=== PATIENT | female | born 1960 | race Two or more races ===

== ENCOUNTER → 2020-02-20 | Outpatient (CLI) | payer BC ==
[2020-02-20 11:56] LABS: Basophils # (auto) 0 10 ^3/uL (0-0.2); Basophils % (auto) 1.1 % (0.0-2.0); Eosinophils # (auto) 0.1 10 ^3/uL (0-0.8); Eosinophils % (auto) 1.8 % (0.0-7.0); Hematocrit 42.3 % (36.0-46.0); Hemoglobin 13.9 g/dL (12.2-16.2); Lymphocytes # (auto) 1.1 10 ^3/uL (0.4-5.4); Lymphocytes % (auto) 24.6 % (10.0-50.0); Mean Corpuscular Hemoglobin 27.2 pg (28.0-32.0); Mean Corpuscular Hgb Conc. 32.9 g/dL (32.0-36.0); Mean Corpuscular Volume 82.6 fL (80.0-100.0); Monocytes # (auto) 0.3 10 ^3/uL (0-1.3); Monocytes % (auto) 7.6 % (0.0-12.0); Neutrophils # (auto) 2.9 10 ^3/uL (1.6-8.6); Neutrophils % (auto) 64.9 % (37.0-80.0); Nucleated Red Blood Cells % 0.7 %; Platelet Count (auto) 173 10^3/uL (140-450); Red Blood Cells 5.12 10^6/uL (4.0-5.20); Red Cell Distribution Width 13.5 % (11.8-14.3); White Blood Cell 4.5 10^3/uL (4.4-10.8)
[2020-02-20 11:58] LABS: Urine Bacteria NONE SEEN /hpf (None Seen); Urine Blood Negative /uL (Negative); Urine Mucus FEW (None Seen); Urine Specific Gravity 1.033 (1.001-1.035); Urine WBC 11 /hpf (0 - 5)
[2020-02-20 12:31] LABS: Albumin 3.7 g/dL (3.4-5.0); Calcium 8.8 mg/dL (8.5-10.1); Potassium 3.6 mmol/L (3.5-5.1)
[2020-02-20 12:34] LABS: BUN/Creatinine Ratio 14.5; Bilirubin, Total 0.9 mg/dL (0.2-1.0); Total Protein 7.5 g/dL (6.4-8.2)
== END | disposition home or self-care (01) ==
LOC: LAB 11:38
PROVIDERS: ATTEND Physician Assistant
DX: Z00.00 Encounter for general adult medical examination without abnormal findings (principal); E11.9 Type 2 diabetes mellitus without complications; I10 Essential (primary) hypertension; M54.32 Sciatica, left side
CPT/HCPCS: 36415; 80053; 80061; 81001; 83036; 85025

== ENCOUNTER 2023-02-25 19:12 | Emergency (ER) | payer SELFPAY ==
[~2023-02-25] VITALS: Ht 144.8 cm; Wt 77.2 kg
[2023-02-25] MEDS ORDERED: HYDROcodone-ACET 10/325MG TAB PO ONE (20:15)
[2023-02-25] MEDS ORDERED: KETOROLAC TROMETH 60MG/2ML VIAL IM ONE (20:15)
[2023-02-25 20:58] LABS: Urine Bacteria NONE SEEN /hpf (None Seen); Urine Blood Negative /uL (Negative); Urine Clarity Clear (Clear); Urine Color Colorless (Yellow); Urine Protein, UAD 1+ (Negative); Urine Urobilinogen Normal (Negative); Urine WBC 12 /hpf (0 - 5)
[2023-02-25] MEDS ORDERED: HYDR-4902 PO (21:19)
[2023-02-25] MEDS ORDERED: IBUP1TAB5 PO (21:19)
[2023-02-25] MEDS ORDERED: NITR-87 PO (21:19)
[2023-02-25 21:45] VITALS: BP 170/83; PULSE 86; RESP 18; TEMP 99; O2SAT 96
== END 2023-02-25 21:48 | disposition home or self-care (01) ==
LOC: ER 19:21
DX: N39.0 Urinary tract infection, site not specified (principal); M41.9 Scoliosis, unspecified; X50.1XXA Overexertion from prolonged static or awkward postures, initial encounter; Y93.89 Activity, other specified; Y92.89 Other specified places as the place of occurrence of the external cause; Y99.8 Other external cause status
CPT/HCPCS: 72100; 81001; 96372; 99284; J1885

== ENCOUNTER 2023-05-15 12:01 | Emergency (ER) | payer BC, MEDICAID ==
[~2023-05-15] VITALS: Ht 144.8 cm; Wt 75.0 kg
[~2023-05-15 12:01] MED LIST: HYDR-4902 PO; IBUP1TAB5 PO; NITR-87 PO
[2023-05-15 12:19] VITALS: BP 134/67; PULSE 76; RESP 16; O2SAT 98
[2023-05-15 12:56] LABS: Basophils # (auto) 0.1 10 ^3/uL (0-0.2); Basophils % (auto) 0.8 % (0.0-2.0); Eosinophils # (auto) 0.2 10 ^3/uL (0-0.8); Eosinophils % (auto) 3.6 % (0.0-7.0); Hematocrit 38.4 % (36.0-46.0); Hemoglobin 12.8 g/dL (12.2-16.2); Lymphocytes % (auto) 16.2 % (10.0-50.0); Mean Corpuscular Hemoglobin 27.5 pg (28.0-32.0); Mean Corpuscular Hgb Conc. 33.3 g/dL (32.0-36.0); Mean Corpuscular Volume 82.5 fL (80.0-100.0); Monocytes # (auto) 0.3 10 ^3/uL (0-1.3); Monocytes % (auto) 4.8 % (0.0-12.0); Neutrophils # (auto) 4.6 10 ^3/uL (1.6-8.6); Neutrophils % (auto) 74.6 % (37.0-80.0); Nucleated Red Blood Cells % 0.1 %; Red Blood Cells 4.65 10^6/uL (4.0-5.20); Red Cell Distribution Width 13.7 % (11.8-14.3); White Blood Cell 6.2 10^3/uL (4.4-10.8)
[2023-05-15 13:13] LABS: Alanine Aminotransferase 18 U/L (7-40); Albumin 4.4 g/dL (3.2-4.8); Alkaline Phosphatase 153 U/L (46-116); Anion Gap 6 (5-15); Aspartate Aminotransferase 12 U/L (13-40); Blood Urea Nitrogen 19 mg/dL (9-23); Calcium 9.5 mg/dL (8.7-10.4); Carbon Dioxide 28 mmol/L (20-30); Chloride 102 mmol/L (98-107); Glucose 340 mg/dL (74-106); Magnesium 1.8 mg/dL (1.6-2.6); Potassium 4.7 mmol/L (3.5-5.1); Sodium 136 mmol/L (136-145)
[2023-05-15 13:14] LABS: Bilirubin, Total 0.6 mg/dL (0.2-1.0); Total Protein 7.1 g/dL (5.7-8.2)
[2023-05-15] MEDS ORDERED: InsuLIN REG 1unit/0.01ml Soln (100units/ml) IV ONE (13:30)
== END 2023-05-15 18:17 | disposition left against medical advice (07) ==
LOC: ER 12:01
DX: E11.65 Type 2 diabetes mellitus with hyperglycemia (principal); I10 Essential (primary) hypertension; Z88.2 Allergy status to sulfonamides; Z79.1 Long term (current) use of non-steroidal anti-inflammatories (NSAID); Z79.899 Other long term (current) drug therapy
CPT/HCPCS: 36415; 71045; 80053; 82010; 83735; 83880; 84484; 85025

== ENCOUNTER 2024-05-12 19:33 | Inpatient (IN) | payer MEDICAID ==
[~2024-05-12] VITALS: Ht 144.8 cm; Wt 79.8 kg
[2024-05-12 20:56] LABS: Basophils # (auto) 0.1 10 ^3/uL (0-0.2); Basophils % (auto) 1.2 % (0.0-2.0); Eosinophils # (auto) 0.6 10 ^3/uL (0-0.8); Eosinophils % (auto) 8.6 % (0.0-7.0); Hematocrit 40.5 % (36.0-46.0); Hemoglobin 13.6 g/dL (12.2-16.2); Lymphocytes # (auto) 1.2 10 ^3/uL (0.4-5.4); Mean Corpuscular Hgb Conc. 33.7 g/dL (32.0-36.0); Mean Corpuscular Volume 82.9 fL (80.0-100.0); Monocytes # (auto) 0.4 10 ^3/uL (0-1.3); Monocytes % (auto) 5.6 % (0.0-12.0); Neutrophils # (auto) 4.6 10 ^3/uL (1.6-8.6); Neutrophils % (auto) 66.6 % (37.0-80.0); Nucleated Red Blood Cells % 0.1 %; Platelet Count (auto) 229 10^3/uL (140-450); Red Blood Cells 4.88 10^6/uL (4.0-5.20); Red Cell Distribution Width 14.2 % (11.8-14.3); White Blood Cell 6.8 10^3/uL (4.4-10.8)
[2024-05-12 21:09] LABS: Chloride 105 mmol/L (98-107); Potassium 3.7 mmol/L (3.5-5.1); Sodium 139 mmol/L (136-145)
[2024-05-12 21:10] LABS: Anion Gap 7 (5-15); Carbon Dioxide 27 mmol/L (20-31)
[2024-05-12 21:15] LABS: BUN/Creatinine Ratio 14.3 (10.0-20.0); Blood Urea Nitrogen 16 mg/dL (9-23); Glucose 272 mg/dL (74-106); Magnesium 2.1 mg/dL (1.6-2.6)
[2024-05-12 21:36] LABS: Urine Bacteria None Seen /hpf (None Seen)
[2024-05-12 21:47] LABS: Urine Blood TRACE /uL (Negative); Urine Clarity Clear (Clear); Urine Color Light-Yellow (Yellow); Urine Mucus FEW (None Seen); Urine Protein, UAD 1+ (Negative); Urine Specific Gravity 1.035 (1.001-1.035); Urine Urobilinogen Normal (Negative); Urine WBC 3 /hpf (0 - 5); Urine pH 5.5 (5.0-9.0)
[2024-05-12 22:00] VITALS: PULSE 95; RESP 14; O2SAT 96
[2024-05-12] MEDS: SODIUM CHLOR 0.9% PF (SALINE LOCK) 10ML VIAL/SYR IV SCH (22:00)
[2024-05-12] MEDS ORDERED: ONDANSETRON HCL 4 MG/2 ML VIAL IV PRN (22:00)
[2024-05-12] MEDS ORDERED: ACETAMINOPHEN 325 MG TAB PO PRN (22:00)
[2024-05-12] MEDS ORDERED: MORPHINE SULFATE INJ 2 MG/ml SYRG IV PRN (22:00)
[2024-05-12] MEDS ORDERED: NITROGLYCERIN 0.4 MG SL TAB SL PRN (22:00)
[2024-05-12] MEDS: ENOXAPARIN SOD 40 MG/0.4 ML SYRINGE SC ONE (22:00)
[2024-05-13] VITALS (10 sets, daily range): BP systolic 137–162; BP diastolic 66–83; PULSE 70–81; RESP 16–21; TEMP 97.8–98.3; O2SAT 95–100
[2024-05-13] MEDS ORDERED: DEXTROSE (50%) 50ML SYRG IV PRN (00:15)
[2024-05-13] MEDS: ATORVASTATIN 20 MG TAB PO ONE (00:44)
[2024-05-13] MEDS: ASPirin 81 mg TAB PO ONE (00:45)
[2024-05-13] MEDS: ACCU-CHEK COMFORT CURVE STRIP VI SCH (06:40)
[2024-05-13] MEDS: InsuLIN REG 1unit/0.01ml Soln (100units/ml) SC SCH (06:44)
[2024-05-13] MEDS: ASPirin 81 mg TAB PO SCH (09:47)
[2024-05-13 10:07] LABS: Alanine Aminotransferase 15 U/L (7-40); Albumin 4.2 g/dL (3.2-4.8); Alkaline Phosphatase 104 U/L (46-116); Anion Gap 6 (5-15); Aspartate Aminotransferase 14 U/L (13-40); BUN/Creatinine Ratio 15.2 (10.0-20.0); Blood Urea Nitrogen 16 mg/dL (9-23); Calcium 9.8 mg/dL (8.7-10.4); Carbon Dioxide 28 mmol/L (20-31); Chloride 109 mmol/L (98-107); Glucose 163 mg/dL (74-106); Potassium 3.8 mmol/L (3.5-5.1); Sodium 143 mmol/L (136-145)
[2024-05-13 10:08] LABS: Basophils # (auto) 0 10 ^3/uL (0-0.2); Basophils % (auto) 0.7 % (0.0-2.0); Bilirubin, Total 0.4 mg/dL (0.2-1.0); Eosinophils # (auto) 0.5 10 ^3/uL (0-0.8); Eosinophils % (auto) 7.2 % (0.0-7.0); Hematocrit 38.1 % (36.0-46.0); Hemoglobin 12.8 g/dL (12.2-16.2); Lymphocytes # (auto) 1.2 10 ^3/uL (0.4-5.4); Lymphocytes % (auto) 19.1 % (10.0-50.0); Mean Corpuscular Hgb Conc. 33.6 g/dL (32.0-36.0); Mean Corpuscular Volume 83.6 fL (80.0-100.0); Monocytes # (auto) 0.4 10 ^3/uL (0-1.3); Monocytes % (auto) 5.9 % (0.0-12.0); Neutrophils # (auto) 4.4 10 ^3/uL (1.6-8.6); Neutrophils % (auto) 67.1 % (37.0-80.0); Nucleated Red Blood Cells % 0.1 %; Platelet Count (auto) 213 10^3/uL (140-450); Red Blood Cells 4.56 10^6/uL (4.0-5.20); Red Cell Distribution Width 14.1 % (11.8-14.3); Total Protein 6.9 g/dL (5.7-8.2); White Blood Cell 6.5 10^3/uL (4.4-10.8)
[2024-05-13 10:25] LABS: INR 1.08 (0.9-1.15); Partial Thromboplastin Time 28.2 SEC (24.5-34.5); Prothrombin Time 11.4 sec (9.3-11.8)
[2024-05-13] MEDS: POTASSIUM EFFERVESENT TAB 25 MEQ PO ONE (12:30)
[2024-05-13] MEDS: amLODIPine BESYLATE 5 MG TAB PO ONE (12:30)
[2024-05-13] MEDS: ACETAMINOPHEN 500 MG TAB PO PRN (12:37)
[2024-05-13] MEDS ORDERED: OMEP20TA PO (18:15)
[2024-05-13] MEDS ORDERED: CHOL20007 OR (18:15)
[2024-05-13] MEDS ORDERED: GABA-1250 PO (18:15)
[2024-05-13] MEDS ORDERED: CLOP75TA70 PO (18:15)
[2024-05-13] MEDS ORDERED: ATOR20TA50 PO (18:15)
[2024-05-13] MEDS ORDERED: ASPI-543 PO (18:15)
[2024-05-13 20:09] LABS: Urine Bacteria FEW /hpf (None Seen); Urine Blood Negative /uL (Negative); Urine Budding Yeast OCCASIONAL /hpf (None Seen); Urine Clarity Clear (Clear); Urine Color Light-Yellow (Yellow); Urine Mucus FEW (None Seen); Urine Protein, UAD 2+ (Negative); Urine Specific Gravity 1.028 (1.001-1.035); Urine Urobilinogen Normal (Negative); Urine WBC 5 /hpf (0 - 5); Urine pH 5.5 (5.0-9.0)
[2024-05-13 20:34] LABS: Amphetamine Screen, Urine Neg (NEGATIVE); Barbiturate Scree,Urine Neg (NEGATIVE); Benzodiazephine Screen, Urine Neg (NEGATIVE)
[2024-05-13 20:35] LABS: Cocaine Screen, Urine Neg (NEGATIVE); Opiate Scree,Urine Neg (NEGATIVE); Phencyclidine Screen, Urine Neg (NEGATIVE)
[2024-05-13 20:36] LABS: Cannabinoid Screen, Urine Pos (NEGATIVE)
[2024-05-13] MEDS ORDERED: MORPHINE SULFATE INJ 2 MG/ml SYRG IV PRN (22:15)
[2024-05-13] MEDS: ATORVASTATIN 20 MG TAB PO SCH (22:24)
[2024-05-13] MEDS: HYDROcodone-ACET 5/325MG TAB PO PRN (22:24)
[2024-05-13] MEDS: INSULIN LANTUS (GLARGINE) 1 /0.01ml (100units/ml) SC SCH (22:25)
[2024-05-14] VITALS (9 sets, daily range): BP systolic 130–156; BP diastolic 69–82; PULSE 68–85; RESP 17–19; TEMP 97.7–98.7; O2SAT 94–98
[2024-05-14] MEDS ORDERED: hydrALAZINE HCL 20 MG/ML VL IV PRN (01:15)
[2024-05-14] MEDS: PANTOPRAZOLE 40 MG TAB PO SCH (06:05)
[2024-05-14 06:30] LABS: Anion Gap 6 (5-15); Carbon Dioxide 27 mmol/L (20-31); Chloride 106 mmol/L (98-107); Potassium 3.7 mmol/L (3.5-5.1); Sodium 139 mmol/L (136-145)
[2024-05-14 06:31] LABS: Calcium 9.4 mg/dL (8.7-10.4)
[2024-05-14 06:36] LABS: BUN/Creatinine Ratio 17.9 (10.0-20.0); Blood Urea Nitrogen 15 mg/dL (9-23); Glucose 115 mg/dL (74-106)
[2024-05-14] MEDS: amLODIPine BESYLATE 5 MG TAB PO SCH (09:54)
[2024-05-14] MEDS: ENOXAPARIN SOD 40 MG/0.4 ML SYRINGE SC SCH (09:54)
[2024-05-15 00:10] VITALS: BP 156/73; PULSE 77; O2SAT 98
[2024-05-15 05:00] VITALS: BP 144/73; PULSE 78; RESP 18; TEMP 98.2; O2SAT 98
[2024-05-15 07:31] LABS: LDL Cholesterol 62 mg/dL (< 100); Triglycerides 186 mg/dL (< 150)
[2024-05-15 07:32] LABS: HDL Cholesterol 41 mg/dL (40-59)
[2024-05-15 07:33] LABS: Cholesterol 129 mg/dL (< 200)
[2024-05-15 09:00] VITALS: BP 126/74; PULSE 79; RESP 18; TEMP 98.4; O2SAT 97
[2024-05-15] MEDS: POTASSIUM EFFERVESENT TAB 25 MEQ PO ONE (09:00)
[2024-05-15 11:13] LABS: Folate (Folic Acid) 15.82 ng/mL (>5.38)
[2024-05-15 13:00] VITALS: BP 147/83; PULSE 80; RESP 18; TEMP 98; O2SAT 98
[2024-05-15 14:49] VITALS: BP 126/74
[2024-05-15] MEDS ORDERED: ATORVASTATIN 20 MG TAB PO SCH (22:00)
== END 2024-05-15 16:35 | disposition home health service (06) | DRG 861 ==
LOC: ER 19:33 → OVERFLOW 21:57 → WEST WING 22:18
PROVIDERS: ADMIT Internal Medicine; ATTEND Internal Medicine
PROC: 5A09357 Assistance with Respiratory Ventilation, Less than 24 Consecutive Hours, Continuous Positive Airway Pressure (ICD-10-PCS; principal; 2024-05-15)
DX: R53.1 Weakness (principal); I69.354 Hemiplegia and hemiparesis following cerebral infarction affecting left non-dominant side; R27.0 Ataxia, unspecified; E11.9 Type 2 diabetes mellitus without complications; E66.9 Obesity, unspecified; G47.10 Hypersomnia, unspecified; I10 Essential (primary) hypertension; E78.5 Hyperlipidemia, unspecified; F12.10 Cannabis abuse, uncomplicated; Z83.3 Family history of diabetes mellitus; Z82.49 Family history of ischemic heart disease and other diseases of the circulatory system; Z82.3 Family history of stroke; Z80.49 Family history of malignant neoplasm of other genital organs; Z80.3 Family history of malignant neoplasm of breast; Z79.82 Long term (current) use of aspirin; Z79.899 Other long term (current) drug therapy; Z68.37 Body mass index [BMI] 37.0-37.9, adult
CPT/HCPCS: 36415; 70450; 70551; 71045; 73502; 80048; 80053; 80061; 80307; 80320; 81001; 82043; 82306; 82607; 82746; 82962; 83036; 83735; 84443; 84484; 85025; 85610; 85730; 93306; 93886; 93970; 94660; 97163; G0378; J1815

== ENCOUNTER 2025-02-06 13:14 | Inpatient (IN) | payer MEDICAID ==
[~2025-02-06] VITALS: Ht 144.8 cm; Wt 83.9 kg
[~2025-02-06 13:14] MED LIST changes: +ASPI-543 PO; +ATOR20TA50 PO; +CHOL20007 OR; +CLOP75TA70 PO; +GABA-1250 PO; -HYDR-4902 PO; -IBUP1TAB5 PO; -NITR-87 PO; +OMEP20TA PO
--- NOTE | 2025-02-06 13:26 | ED.PDOC ---
History of Present Illness HPI Comments 64-year-old female with PMHx DM, HTN, CVA presents with a chief complaint of chest pain x 2 days with associated SOB. Patient states that her pain is localized to her sternal region, nonradiating, nonexertional, describes as pressure, and rates her pain a 7/10. Patient denies any nausea, vomiting, or diarrhea associated with her chest pain. Patient also endorses some SOB. Patient is not on supplemental oxygen. Time Seen by MD: 13:19 Reviewed Notes: Nurses Notes, Medications, Allergies Allergies: Coded Allergies: Sulfa Antibiotics (Verified Allergy, Unknown, 05/15/23) Home Meds Reported Medications Gabapentin (Gabapentin) 300 Mg Cap, 300 MG PO DAILY for 30 Days, MG 05/13/24 Atorvastatin Calcium (ATORVASTATIN CALCIUM) 20 Mg Tab, 1 TAB PO HS, #30 TAB 5 Refills 05/13/24 Clopidogrel Bisulfate (CLOPIDOGREL) 75 Mg Tab, 75 MG PO DAILY for 30 Days, MG 05/13/24 Omeprazole (Gnp Omeprazole) 20 Mg Tab, 40 MG PO before breakfast, TAB 05/13/24 Cholecalciferol (VITAMIN D3) 2,000 Unit Tab, 34978 UNIT OR once a week, TAB 05/13/24 Aspirin (Aspir-Low) 81 Mg Tab, 81 MG PO DAILY for 30 Days, MG 05/13/24 Information Source: Patient Mode of Arrival: Ambulatory Severity: Moderate Timing: Days Duration: Since onset Prehospital treatment: None Past Medical History PAST MEDICAL HISTORY: CVA, DM, High Lipids, HTN Surgical History: Denies all surgeries ROLLED MATERIALS WORKER History: No Pertinent 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 WORKER History Family History Family History: Reviewed,noncontributory to illness Social History Smoker: Non-Smoker Alcohol: Denies ETOH Use Drugs: Denies Drug Use Lives In: Home Constitutional: denies: chills, diaphoresis, fatigue, fever, malaise, sweats, weakness, others EENTM: denies: blurred vision, double vision, ear bleeding, ear discharge, ear drainage, ear pain, ear ringing, eye pain, eye redness, hearing loss, mouth pain, mouth swelling, nasal discharge, nose bleeding, nose congestion, nose pain, photophobia, tearing, throat pain, throat swelling, voice changes, others Respiratory: reports: shortness of breath; denies: cough, hemoptysis, orthopnea, SOB at rest, SOB with excertion, stridor, wheezing, others Cardiovascular: reports: chest pain; denies: dizzy spells, diaphoresis, Dyspnea on exertion, edema, irregular heart beat, left arm pain, lightheadedness, palpitations, PND, syncope, others Gastrointestinal: denies: abdomen distended, abdominal pain, blood streaked bowels, constipated, diarrhea, dysphagia, difficulty swallowing, hematemesis, melena, nausea, poor appetite, poor fluid intake, rectal bleeding, rectal pain, vomiting, others Genitourinary: denies: abnormal vagina bleeding, burning, dyspareunia, dysuria, flank pain, frequency, hematuria, incontinence, pain, , vagina discharge, urgency, others Neurological: denies: dizziness, fainting, headache, left sided numbness, left sided weakness, numbness, paresthesia, pre-existing deficit, right sided numbness, right sided weakness, seizure, speech problems, tingling, tremors, weakness, others Musculoskeletal: denies: back pain, gout, joint pain, joint swelling, muscle pain, muscle stiffness, neck pain, others Integumetry: denies: bruises, change in color, change in hair/nails, dryness, laceration, lesions, lumps, rash, wounds, others Allergic/Immunocompromised: denies: Difficulty Healing, Frequent Infections, Hives, Itching, others Hematologic/Lymphatic: denies: anemia, blood clots, easy bleeding, easy bruising, swollen glands, others Endocrine: denies: excessive hunger, excessive sweating, excessive thirst, excessive urination, flushing, intolerance to cold, intolerance to heat, unexplained weight gain, unexplained weight loss, others Psychiatric: denies: anxiety, bipolar disorder, depression, hopeless, panic disorder, schizophrenia, sleepless, suicidal, others All Other Systems: Reviewed and Negative Physical Exam General Appearance: Moderate Distress HEENT: Normal ENT Inspection, Pharynx Normal, TMs Normal Neck: Full Range of Motion, Non-Tender, Normal, Normal Inspection Respiratory: Chest Non-Tender, Lungs Clear, No Accessory Muscle Use, No Respiratory Distress, Normal Breath Sounds Cardiovascular: No Edema, No JVD, No Murmur, No Gallop, Normal Peripheral Pu lses, Regular Rate/Rhythm Breast Exam: Deferred Gastrointestinal: No Organomegaly, Non Tender, No Pulsatile Mass, Normal Bowel Sounds, Soft Genitalia: Deferred Pelvic: Deferred Rectal: Deferred Extremities: No calf tenderness, Normal capillary refill, Normal inspection, Normal range of motion, Non-tender, No pedal edema Musculoskeletal : Apperance: Normal Neurologic: Alert, centrex radio operator II-XII nml as Tested, Motor Weakness, Normal Affect, Normal Mood, No Sensory Deficits Cerebellar Function: Normal Reflexes: Normal Skin: Dry, Normal Color, Warm Lymphatic: No Adenopathy Was a procedure done? Was a procedure done?: No EKG EKG : Pulse Rate (adult): 83 [place]: Normal Cardiac Rhythm: NSR Block: None Hypertrophy: None ST: Normal Differential Dx Considerations may include: ACS, [place], pneumonia, pneumothorax X-Ray, Labs, Meds, VS Vital Signs Date Time Temp Pulse Resp B/P (MAP) Pulse Ox O2 Delivery O2 Flow Rate FiO2 02/06/25 14:32 84 02/06/25 14:03 98.7 84 18 170/85 (113) 97 98.7 02/06/25 13:55 84 18 97 Room Air* 0 21 02/06/25 13:26 83 02/06/25 13:22 83 02/06/25 13:18 97.4 85 20 188/89 (122) 98 97.4 Lab Test 02/06/25 14:21 02/06/25 13:24 Range/Units Troponin I High Sensitivity 3 L < 3 L </=34 ng/L White Blood Count 6.9 4.4-10.8 10^3/uL Red Blood Count 4.69 4.0-5.20 10^6/uL Hemoglobin 13.0 12.2-16.2 g/dL Hematocrit 38.1 36.0-46.0 % Mean Corpuscular Volume 81.3 80.0-100.0 fL Mean Corpuscular Hemoglobin 27.6 L 28.0-32.0 pg Mean Corpuscular Hemoglobin Concent 34.0 32.0-36.0 g/dL Red Cell Distribution Width 13.5 11.8-14.3 % Platelet Count 196 140-450 10^3/uL Mean Platelet Volume 8.9 6.9-10.8 fL Neutrophils (%) (Auto) 70.0 37.0-80.0 % Lymphocytes (%) (Auto) 18.5 10.0-50.0 % Monocytes (%) (Auto) 5.8 0.0-12.0 % Eosinophils (%) (Auto) 4.9 0.0-7.0 % Basophils (%) (Auto) 0.8 0.0-2.0 % Neutrophils # (Auto) 4.8 1.6-8.6 10 ^3/uL Lymphocytes # (Auto) 1.3 0.4-5.4 10 ^3/uL Monocytes # (Auto) 0.4 0-1.3 10 ^3/uL Eosinophils # (Auto) 0.3 0-0.8 10 ^3/uL Basophils # (Auto) 0.1 0-0.2 10 ^3/uL Nucleated Red Blood Cells 0.1 % Sodium Level 142 136-145 mmol/L Potassium Level 4.2 3.5-5.1 mmol/L Chloride Level 107 98-107 mmol/L Carbon Dioxide Level 25 20-31 mmol/L Anion Gap 10 5-15 Blood Urea Nitrogen 16 9-23 mg/dL Creatinine 0.99 0.550-1.02 mg/dL Glomerular Filtration Rate Calc 64 >90 mL/min BUN/Creatinine Ratio 16.2 10.0-20.0 Serum Glucose 234 H 74-106 mg/dL Calcium Level 9.4 8.7-10.4 mg/dL Current Medications Medications (Trade) Dose Ordered Sig/Reynaldo Route Start Time Stop Time Status Last Admin Aspirin 162 mg ONCE ONCE PO 02/06/25 13:30 02/06/25 13:31 DC 02/06/25 13:58 IV Hep-Lock was established The patient was given aspirin 162 mg by mouth. The patient is still having some persistent chest pain The patient's chemistry panel is within normal limits The CBC is within normal limits The patient had a troponin level which is negative We repeated the troponin level is also negative The patient is being admitted at this time The patient's diagnosis is acute coronary syndrome Images Reviewed?: Images reviewed and evaluated by me Time of 1ST Reevaluation: 13:49 Reevaluation 1ST: Improved Patient Education/Counseling: Diagnosis, Treatment, Prognosis Family Education/Counseling: No Family Present SEPSIS Sepsis Screen Physician Orders Heplock Iv (02/06/25 13:21) Advertising Job Titles (02/06/25 13:21) Blood Pressure (02/06/25 13:21) Pulse Oximetry (02/06/25 13:21) Chest Two Views Routine (02/06/25 13:21) Urinalysis (02/06/25 13:21) Electrocardigram (02/06/25 14:21) Electrocardigram (02/06/25 16:21) Vital Signs Date Time Temp Pulse Resp B/P (MAP) Pulse Ox O2 Delivery O2 Flow Rate FiO2 02/06/25 14:32 84 02/06/25 14:03 98.7 84 18 170/85 (113) 97 98.7 02/06/25 13:55 84 18 97 Room Air* 0 21 02/06/25 13:26 83 02/06/25 13:22 83 02/06/25 13:18 97.4 85 20 188/89 (122) 98 97.4 Laboratory Tests Test 02/06/25 13:24 White Blood Count 6.9 10^3/uL (4.4-10.8) Medications Medications Dose Ordered Sig/Reynaldo Route Start Time Stop Time Status Last Admin Dose Admin Aspirin 162 mg ONCE ONCE PO 02/06/25 13:30 02/06/25 13:31 DC 02/06/25 13:58 Departure 1 Departure Time of Disposition: 16:12 Impression: Primary Impression: Acute coronary syndrome Disposition: 09 ADMITTED INPATIENT Admit to: Tele Condition: Fair Critical Care Note Critical Care Time?: Yes (45 min-critical care time only) Stability Stability form required: Yes Unstable for transfer: Telemetry monitoring (Telemetry monitoring required), ED Physician Assesment Heart Score Heart Score: Heart Score Response (Comments) Value History Moderate Suspicious 1 EKG Repolarization Disturb 1 Age 45-64 1 Risk Factors >3 or Hx ASHD 2 Troponin Normal limit 0 Total 5 I personally scribed for JUAN IBANEZ MD ([email or web address]) on 02/06/25 at 13:26. Electronically submitted by Wing Green ([email or web address]). JUAN IBANEZ MD Feb 06, 2025 13:26
[2025-02-06 13:50] LABS: Hematocrit 38.1 % (36.0-46.0); Hemoglobin 13.0 g/dL (12.2-16.2); Mean Corpuscular Hemoglobin 27.6 pg (28.0-32.0); Mean Corpuscular Volume 81.3 fL (80.0-100.0); Nucleated Red Blood Cells % 0.1 %
--- NOTE | 2025-02-06 13:50 | DVH ---
EXAM: XY CHEST TWO VIEWS ROUTINE CLINICAL HISTORY: sob COMPARISON: None TECHNIQUE: Frontal and lateral view of the chest was obtained FINDINGS: Lines and Tubes: None Lungs: No focal consolidation. Pleura: No effusion. No pneumothorax. Cardiomediastinal contours: Unremarkable Bones: No acute osseous abnormality. IMPRESSION: No acute cardiopulmonary disease.
[2025-02-06 13:55] VITALS: PULSE 84; RESP 18; O2SAT 97
[2025-02-06 14:02] LABS: Potassium 4.2 mmol/L (3.5-5.1); Sodium 142 mmol/L (136-145)
[2025-02-06 14:03] LABS: Anion Gap 10 (5-15); Calcium 9.4 mg/dL (8.7-10.4); Carbon Dioxide 25 mmol/L (20-31)
[2025-02-06 14:07] LABS: Chloride 107 mmol/L (98-107)
[2025-02-06 14:08] LABS: BUN/Creatinine Ratio 16.2 (10.0-20.0); Blood Urea Nitrogen 16 mg/dL (9-23); Glucose 234 mg/dL (74-106)
--- NOTE | 2025-02-06 14:33 | ECG ---
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
[2025-02-06 16:42] LABS: Urine Budding Yeast FEW /hpf (None Seen); Urine Protein, UAD 1+ (Negative)
[2025-02-06] MEDS ORDERED: DOCUSATE SOD 100 MG CAP PO PRN (17:00)
[2025-02-06] MEDS ORDERED: MORPHINE SULFATE INJ 2 MG/ml SYRG IV PRN (17:00)
[2025-02-06] MEDS ORDERED: NITROGLYCERIN 0.4 MG SL TAB SL PRN (17:00)
[2025-02-06] MEDS ORDERED: ONDANSETRON HCL 4 MG/2 ML VIAL IV PRN (17:00)
[2025-02-06] MEDS ORDERED: DEXTROSE (50%) 50ML SYRG IV PRN (17:00)
[2025-02-06] MEDS ORDERED: ACETAMINOPHEN 325 MG TAB PO PRN (17:00)
[2025-02-06] MEDS ORDERED: EMPA1TAB PO (17:01)
[2025-02-06] MEDS ORDERED: GLIM4TAB42 PO (17:01)
[2025-02-06] MEDS ORDERED: AMLO1TAB22 PO (17:01)
--- NOTE | 2025-02-06 17:15 | DVHHP2 ---
History of Present Illness Reason for Visit: Chest Pain History of Present Illness Flores Babb is a 64-year-old female with past medical history of hypertension, hyperlipemia, diabetes, and CVA, who came to the hospital due to chest pain. Patient states she has been experiencing intermittent chest pain for about 2 days. She states the pain is across her right and left chest, is a pressure type of pain, worsens when she lays flat, and has associated shortness of breath when the pain occurs. 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 Endocrine: Diabetes Past Surgical History: (x 2) Smoke: No ALCOHOL: none Drugs: None Lives: Alone Domestic Violence: Neg Review of Systems Constitutional: No: Fever, Chills, Sweats, Weakness, Malaise, Other Eyes: No: Pain, Vision change, Conjunctivae inflammation, Eyelid inflammation, Other, Redness ENT: No: Ear pain, Ear discharge, Nose pain, Nose discharge, Nose congestion, Mouth pain, Mouth swelling, Throat pain, Throat swelling, Other Respiratory: No: Cough, Dry, Shortness of breath, SOB with excertion, Wheezing, Hemoptysis, Pleuritic Pain, Sputum, Wheezing, Other Cardiovascular: No: Chest Pain, Palpitations, Orthopnea, Paroxysmal Noc. Dyspnea, Edema, Lt Headedness, Other Gastrointestinal: No: Nausea, Vomiting, Abdominal Pain, Diarrhea, Constipation, Melena, Hematochezia, Other Genitourinary: No Dysuria, No Frequency, No Incontinence, No Hematuria, No Retention, No Other Musculoskeletal: No: other, neck pain, shoulder pain, arm pain, back pain, hand pain, leg pain, foot pain Neurological: No: Weakness, Numbness, Incoordination, Change in speech, Confusion, Seizures, Other Allergies: Coded Allergies: Sulfa Antibiotics (Verified Allergy, Unknown, 05/15/23) Medications Current Medications Medications Dose Ordered Sig/Reynaldo Route Start Time Stop Time Status Last Admin Dose Admin Acetaminophen/ Hydrocodone Bitart 1 tab Q4HP PRN PO 02/06/25 17:00 UNV Morphine Sulfate 2 mg Q30M PRN IV 02/06/25 17:00 UNV Diagnostic Test (Pha) 1 strip ACHS 02/06/25 17:00 UNV Exam Vital Signs Vital Signs Date Time Temp Pulse Resp B/P (MAP) Pulse Ox O2 Delivery O2 Flow Rate FiO2 02/06/25 16:21 79 18 166/83 (110) 96 02/06/25 14:03 98.7 98.7 02/06/25 13:55 Room Air* 0 21 General Appearance: Alert, Oriented X3, Cooperative, mild distress HEENT: Atraumatic, PERRLA Respiratory: Clear to auscultation, Normal air movement Cardiovascular: Regular rate, Normal S1, Normal S2, No murmurs Abdominal: Normal bowel sounds, Soft, No tenderness, No hepatospenomegaly Extremities: No clubbing, No cyanosis, No edema, No tenderness/swelling Skin: No rashes, No breakdown Neuro: Normal gait, Normal speech, Strength at 5/5 X4 ext, Normal tone Psych/Mental Status: Mental status NL Labs/Xrays Labs Test 02/06/25 16:31 02/06/25 14:21 02/06/25 13:24 Range/Units Urine Color Light-yellow Yellow Urine Clarity Clear Clear Urine pH 5.5 5.0-9.0 Urine Specific [place] 1.031 1.001-1.035 Urine Protein 1+ H Negative Urine Ketones Negative Negative Urine Blood Trace H Negative /uL Urine Nitrite Negative Negative Urine Bilirubin Negative Negative Urine Urobilinogen Normal Negative mg/dL Urine Leukocyte Esterase Negative Negative /uL Urine RBC 14 0 - 4 /hpf Urine Microscopic WBC 2 0-5 /HPF Urine Squamous Epithelial Cells Few <5 /hpf Urine Bacteria None seen None Seen /hpf Urine Yeast (Budding) Few None Seen /hpf Urine Glucose 4+ H Normal mg/dL Troponin I High Sensitivity 3 L </=34 ng/L White Blood Count 6.9 4.4-10.8 10^3/uL Red Blood Count 4.69 4.0-5.20 10^6/uL Hemoglobin 13.0 12.2-16.2 g/dL Hematocrit 38.1 36.0-46.0 % Mean Corpuscular Volume 81.3 80.0-100.0 fL Mean Corpuscular Hemoglobin 27.6 L 28.0-32.0 pg Mean Corpuscular Hemoglobin Concent 34.0 32.0-36.0 g/dL Red Cell Distribution Width 13.5 11.8-14.3 % Platelet Count 196 140-450 10^3/uL Mean Platelet Volume 8.9 6.9-10.8 fL Neutrophils (%) (Auto) 70.0 37.0-80.0 % Lymphocytes (%) (Auto) 18.5 10.0-50.0 % Monocytes (%) (Auto) 5.8 0.0-12.0 % Eosinophils (%) (Auto) 4.9 0.0-7.0 % Basophils (%) (Auto) 0.8 0.0-2.0 % Neutrophils # (Auto) 4.8 1.6-8.6 10 ^3/uL Lymphocytes # (Auto) 1.3 0.4-5.4 10 ^3/uL Monocytes # (Auto) 0.4 0-1.3 10 ^3/uL Eosinophils # (Auto) 0.3 0-0.8 10 ^3/uL Basophils # (Auto) 0.1 0-0.2 10 ^3/uL Nucleated Red Blood Cells 0.1 % Sodium Level 142 136-145 mmol/L Potassium Level 4.2 3.5-5.1 mmol/L Chloride Level 107 98-107 mmol/L Carbon Dioxide Level 25 20-31 mmol/L Anion Gap 10 5-15 Blood Urea Nitrogen 16 9-23 mg/dL Creatinine 0.99 0.550-1.02 mg/dL Glomerular Filtration Rate Calc 64 >90 mL/min BUN/Creatinine Ratio 16.2 10.0-20.0 Serum Glucose 234 H 74-106 mg/dL Calcium Level 9.4 8.7-10.4 mg/dL EXAM: XY CHEST TWO VIEWS ROUTINE FINDINGS: Lines and Tubes: None Lungs: No focal consolidation. Pleura: No effusion. No pneumothorax. Cardiomediastinal contours: Unremarkable Bones: No acute osseous abnormality. IMPRESSION: No acute cardiopulmonary disease. SEPSIS Sepsis Screen Date sepsis recognized/suspect: Feb 06, 2025 Time Sepsis recognized/suspect: 1354 Recent Procedure: No On Antibiotic Therapy: No Respiratory Rate >20: No Heart Rate >90: No Temp<36 C (96.8 F) or >38.3 C: No SBP <90 or MAP <65 mmHG: No New Acute Mental Status Change: No Is the patient on CPAP, BIPAP,: No Physician Orders Heplock Iv (02/06/25 13:21) Rolled Glass Crosscutter (02/06/25 13:21) Blood Pressure (02/06/25 13:21) Pulse Oximetry (02/06/25 13:21) Chest Two Views Routine (02/06/25 13:21) Electrocardigram (02/06/25 14:21) Electrocardigram (02/06/25 16:21) Admit (02/06/25 16:53) Code Status (02/06/25 16:53) 2 Gm Sodium Diet (02/06/25 Dinner) Hydrocodone-Acet 5/325mg Tab ([place] 5/32 (02/06/25 17:00) Ondansetron Hcl (Zofran) (02/06/25 17:00) Docusate Sodium Capsule (Colace Capsule) (02/06/25 17:00) Complete Blood Count (02/07/25 04:00) Comprehensive Metabolic Panel (02/07/25 04:00) Echo 2d Mode Cardiac Dop (02/06/25 16:53) Condition: Serious (02/06/25 16:53) Acetaminophen Tablet (Tylenol Tablet) (02/06/25 17:00) Nitroglycerin Sublingual (Ntrostat Subli (02/06/25 17:00) Morphine Sulfate Injection (02/06/25 17:00) Stat Ekg For Chest Pain (02/06/25 16:53) Notify Md Of Changes From Base (02/06/25 16:53) Credit And Loan Collections Supervisor For 24 Hours (02/06/25 16:53) Emergency Dysrhythmia Protocol (02/06/25 16:53) Rhythm Strips Once Every Shift (02/06/25 16:53) Oxygen By Nasal Cannula (02/06/25 16:53) Glucose Blood (Accu-Chek Comfort Curve T (02/06/25 17:00) Insulin R (Human) (Insulin R) (02/06/25 22:00) Insulin R (Human) (Insulin R) (02/06/25 17:00) Dextrose 50% Syringe (02/06/25 17:00) Aspirin Enteric Coated Tablet (Ecotrin E (02/07/25 10:00) Atorvastatin (Lipitor) (02/06/25 22:00) Clopidogrel Bisulfate (Plavix) (02/07/25 10:00) (Nf) Cholecalciferol (Vitamin D3) (02/06/25 17:00) Amlodipine Tablet (Norvasc Tablet) (02/07/25 10:00) Empagliflozin (Jardiance) (02/07/25 10:00) (Nf) Glimepiride (02/07/25 07:00) Vital Signs Date Time Temp Pulse Resp B/P (MAP) Pulse Ox O2 Delivery O2 Flow Rate FiO2 02/06/25 16:21 79 18 166/83 (110) 96 02/06/25 14:32 84 02/06/25 14:03 98.7 84 18 170/85 (113) 97 98.7 02/06/25 13:55 84 18 97 Room Air* 0 21 02/06/25 13:26 83 02/06/25 13:22 83 02/06/25 13:18 97.4 85 20 188/89 (122) 98 97.4 Laboratory Tests Test 02/06/25 13:24 White Blood Count 6.9 10^3/uL (4.4-10.8) Medications Medications Dose Ordered Sig/Reynaldo Route Start Time Stop Time Status Last Admin Dose Admin Aspirin 162 mg ONCE ONCE PO 02/06/25 13:30 02/06/25 13:31 DC 02/06/25 13:58 162 MG Assessment/Plan Assessment/Plan Assessment: Possible ACS, Uncontrolled diabetes, Possible GERD, Uncontrolled hypertension, Hyperlipidemia, Plan: Admit to Tele, Cardiology consult, ECHO, Lipid panel, TSH, A1c, Statin, ASA, PRN antihypertensives, Accu checks Q AC&HS with sliding scale, Home medications reconciled, Plan discussed with: Patient My Orders Orders - ADRIÁN LUND Procedure Category Date Status Time Admit ADMIT 02/06/25 Transmitted 16:53 Code Status CODE 02/06/25 Transmitted 16:53 2 Gm Sodium Diet DIET 02/06/25 Transmitted Dinner Hydrocodone-Acet PHA 02/06/25 Logged 5/325mg Tab ([place] 17:00 Ondansetron Hcl PHA 02/06/25 Logged (Zofran) 17:00 Docusate Sodium PHA 02/06/25 Logged Capsule (Colace 17:00 Complete Blood Count LAB 02/07/25 Verified 04:00 Comprehensive LAB 02/07/25 Verified Metabolic Panel 04:00 Echo 2d Mode Cardiac US 02/06/25 Logged DOP 16:53 Condition: Serious KIERRA 02/06/25 In Process 16:53 Acetaminophen Tablet PHA 02/06/25 Logged (Tylenol Tablet) 17:00 Nitroglycerin [facility] 02/06/25 Logged Sublingual (Ntrostat 17:00 Morphine Sulfate PHA 02/06/25 Logged Injection 17:00 Stat Ekg For Chest [facility] 02/06/25 In Process Pain 16:53 Notify Of Changes [facility] 02/06/25 In Process From Base 16:53 Credit And Loan Collections Supervisor For [facility] 02/06/25 In Process 24 Hours 16:53 Emergency Dysrhythmia [facility] 02/06/25 In Process Protocol 16:53 Rhythm Strips Once [facility] 02/06/25 In Process Every Shift 16:53 Oxygen By Nasal RT 02/06/25 Transmitted Cannula 16:53 Glucose Blood [facility] 02/06/25 Logged (Accu-Chek Comfort 17:00 Insulin R (Human) PHA 02/06/25 Logged (Insulin R) 22:00 Insulin R (Human) PHA 02/06/25 Logged (Insulin R) 17:00 Dextrose 50% Syringe [facility] 02/06/25 Logged 17:00 Aspirin Enteric PHA 02/07/25 Logged Coated Tablet 10:00 Atorvastatin (Lipitor) [facility] 02/06/25 Logged 22:00 Clopidogrel Bisulfate [facility] 02/07/25 Logged (Plavix) 10:00 (Nf) Cholecalciferol PHA 02/06/25 Logged (Vitamin D3) 17:00 Amlodipine Tablet [facility] 02/07/25 Logged (Norvasc Tablet) 10:00 Empagliflozin PHA 02/07/25 Logged (Jardiance) 10:00 (Nf) Glimepiride [facility] 02/07/25 Logged 07:00 Date of Service: Feb 06, 2025 Billing Provider: ADRIÁN LUND Common Visit Codes: [id number] INP/OBS CARE (MOD) ADRIÁN LUND Feb 06, 2025 17:15
[2025-02-06] MEDS: ACCU-CHEK COMFORT CURVE STRIP VI SCH (17:19)
[2025-02-06] MEDS: InsuLIN REG 1unit/0.01ml Soln (100units/ml) SC SCH ×2 (17:22→22:41)
[2025-02-06] MEDS: ERGOCALCIFEROL 50,000 UNIT(1.25MG) CAP PO SCH (17:29)
[2025-02-06 18:16] LABS: Cholesterol 174 mg/dL (< 200); HDL Cholesterol 51 mg/dL (40-59)
[2025-02-06 18:17] LABS: Triglycerides 173 mg/dL (< 150)
[2025-02-06] MEDS: ATORVASTATIN 20 MG TAB PO SCH (22:41)
[2025-02-06 23:10] VITALS: BP 177/94; PULSE 79; PULSE 85; RESP 17; RESP 18; TEMP 97.9; O2SAT 98; O2SAT 99
--- NOTE | 2025-02-06 23:13 | DVHINCON2 ---
Date of service: Feb 06, 2025 Referring Physician Colleen Reason for Consultation Chest pain History of Present Illness This is a 64 year old female with a PMH of CVA, DM, High Lipids, HTN who presented to the ED with complaints of complaint of chest pain x 2 days with associated SOB. Patient states that her pain is localized to her sternal region, nonradiating, nonexertional, describes as pressure, and rates her pain a 7/10. Patient also endorses some SOB. Patient is not on supplemental oxygen. EKG is NSR at 83. CBC and Chemistry are WNL. Troponin is negative. EKG is NSR at 84. Chest x-ray shows NAD. Patient was admitted to the hospital. I am asked to consult on this patient. Family History: Cardiovascular disease G8 FATHER Allergies: Coded Allergies: Sulfa Antibiotics (Verified Allergy, Unknown, 05/15/23) Home Meds Reported Medications Amlodipine Besylate (Amlodipine Besylate) 5 Mg Tab, 1 TAB PO DAILY 02/06/25 Glimepiride (Glimepiride) 4 Mg Tab, 1 TAB PO QAM 02/06/25 Empagliflozin (Jardiance) 10 Mg Tab, 1 TAB PO DAILY 02/06/25 Gabapentin (Gabapentin) 300 Mg Cap, 300 MG PO DAILY for 30 Days, MG 05/13/24 Atorvastatin Calcium (ATORVASTATIN CALCIUM) 20 Mg Tab, 1 TAB PO HS, #30 TAB 5 Refills 05/13/24 Clopidogrel Bisulfate (CLOPIDOGREL) 75 Mg Tab, 75 MG PO DAILY for 30 Days, MG 05/13/24 Omeprazole (Gnp Omeprazole) 20 Mg Tab, 40 MG PO before breakfast, TAB 05/13/24 Cholecalciferol (VITAMIN D3) 2,000 Unit Tab, 59744 UNIT OR once a week, TAB 05/13/24 Aspirin (Aspir-Low) 81 Mg Tab, 81 MG PO DAILY for 30 Days, MG 05/13/24 Current Medications Current Medications Medications (Trade) Dose Ordered Sig/Reynaldo Route PRN Reason Start Time Stop Time Status Last Admin Acetaminophen/ Hydrocodone Bitart ([place] 5/325MG Tab) 1 tab Q4HP PRN PO MODERATE PAIN (4-6 PAIN SCALE) 02/06/25 17:00 Ondansetron HCl (Zofran) 4 mg Q4HP PRN IV NAUSEA / VOMITING 02/06/25 17:00 Docusate Sodium (Colace Capsule) 100 mg BIDPRN PRN PO FOR CONSTIPATION 02/06/25 17:00 Acetaminophen (Tylenol Tablet) 650 mg Q6HP PRN PO PAIN SCALE 1-3 OR TEMP>100.4 02/06/25 17:00 Nitroglycerin (Ntrostat Sublingual) 0.4 mg Q5MINP PRN SL FOR CHEST PAIN 02/06/25 17:00 Morphine Sulfate 2 mg Q30M PRN IV FOR CHEST PAIN 02/06/25 17:00 Diagnostic Test (Pha) (Accu-Chek Comfort Curve T) 1 strip ACHS 02/06/25 17:00 02/06/25 22:00 Insulin Human Regular (InsuLIN R) HS SC 02/06/25 22:00 02/06/25 22:41 Insulin Human Regular (InsuLIN R) AC SC 02/06/25 17:00 02/06/25 17:22 Dextrose 50 ml UD PRN IV Blood Sugar LESS THAN 60 02/06/25 17:00 Aspirin (Ecotrin Enteric Coated Tablet) 81 mg DAILY PO 02/07/25 10:00 Atorvastatin Calcium (Lipitor) 20 mg HS PO 02/06/25 22:00 02/06/25 22:41 Clopidogrel Bisulfate (Plavix) 75 mg DAILY PO 02/07/25 10:00 Ergocalciferol (Vitamin D 50,000 Unit) 50,000 unit Q7D PO 02/06/25 17:00 02/06/25 17:29 Amlodipine Besylate (Norvasc Tablet) 5 mg DAILY PO 02/07/25 10:00 Empaglifozin (Jardiance) 10 mg DAILY PO 02/07/25 10:00 Glimepiride (Amaryl Tablet) 4 mg DAILY@BREAKFAST PO 02/07/25 08:00 Review of Systems Constitutional: denies: chills, diaphoresis, fatigue, fever, malaise, sweats, weakness, others EENTM: denies: blurred vision, double vision, ear bleeding, ear discharge, ear drainage, ear pain, ear ringing, eye pain, eye redness, hearing loss, mouth pain, mouth swelling, nasal discharge, nose bleeding, nose congestion, nose pain, photophobia, tearing, throat pain, throat swelling, voice changes, others Respiratory: reports: shortness of breath; denies: cough, hemoptysis, orthopnea, SOB at rest, SOB with excertion, stridor, wheezing, others Cardiovascular: reports: chest pain; denies: dizzy spells, diaphoresis, Dyspnea on exertion, edema, irregular heart beat, left arm pain, lightheadedness, palpitations, PND, syncope, others Gastrointestinal: denies: abdomen distended, abdominal pain, blood streaked bowels, constipated, diarrhea, dysphagia, difficulty swallowing, hematemesis, melena, nausea, poor appetite, poor fluid intake, rectal bleeding, rectal pain, vomiting, others Genitourinary: denies: abnormal vagina bleeding, burning, dyspareunia, dysuria, flank pain, frequency, hematuria, incontinence, pain, , vagina discharge, urgency, others Neurological: denies: dizziness, fainting, headache, left sided numbness, left sided weakness, numbness, paresthesia, pre-existing deficit, right sided numbness, right sided weakness, seizure, speech problems, tingling, tremors, weakness, others Musculoskeletal: denies: back pain, gout, joint pain, joint swelling, muscle pain, muscle stiffness, neck pain, others Integumetry: denies: bruises, change in color, change in hair/nails, dryness, laceration, lesions, lumps, rash, wounds, others Allergic/Immunocompromised: denies: Difficulty Healing, Frequent Infections, Hives, Itching, others Hematologic/Lymphatic: denies: anemia, blood clots, easy bleeding, easy bruising, swollen glands, others Endocrine: denies: excessive hunger, excessive sweating, excessive thirst, excessive urination, flushing, intolerance to cold, intolerance to heat, unexplained weight gain, unexplained weight loss, others Psychiatric: denies: anxiety, bipolar disorder, depression, hopeless, panic disorder, schizophrenia, sleepless, suicidal, others All Other Systems: Reviewed and Negative Vital Signs Vital Signs Date Time Temp Pulse Resp B/P (MAP) Pulse Ox O2 Delivery O2 Flow Rate FiO2 02/06/25 21:51 98.7 82 18 159/87 (111) 94 98.7 02/06/25 13:55 Room Air* 0 21 Physical Exam GENERAL: Alert and oriented x 3. No acute distress. EYES: PERRL, EOMI. Anicteric. HENT: Moist mucous membranes. LUNGS: Clear to auscultation bilaterally. CARDIOVASCULAR: Regular rate and rhythm. ABDOMEN: Soft, non-tender and non-distended. EXTREMITIES: No edema. NEUROLOGIC: No focal neurological deficits. SKIN: Warm, dry. Labs/Diagnostic Data Labs Test 02/06/25 22:35 02/06/25 16:31 02/06/25 14:21 02/06/25 13:24 Range/Units POC Glucose 178 H 70-106 mg/dl Urine Color Light-yellow Yellow Urine Clarity Clear Clear Urine pH 5.5 5.0-9.0 Urine Specific [place] 1.031 1.001-1.035 Urine Protein 1+ H Negative Urine Ketones Negative Negative Urine Blood Trace H Negative /uL Urine Nitrite Negative Negative Urine Bilirubin Negative Negative Urine Urobilinogen Normal Negative mg/dL Urine Leukocyte Esterase Negative Negative /uL Urine RBC 14 0 - 4 /hpf Urine Microscopic WBC 2 0-5 /HPF Urine Squamous Epithelial Cells Few <5 /hpf Urine Bacteria None seen None Seen /hpf Urine Yeast (Budding) Few None Seen /hpf Urine Glucose 4+ H Normal mg/dL Troponin I High Sensitivity 3 L </=34 ng/L White Blood Count 6.9 4.4-10.8 10^3/uL Red Blood Count 4.69 4.0-5.20 10^6/uL Hemoglobin 13.0 12.2-16.2 g/dL Hematocrit 38.1 36.0-46.0 % Mean Corpuscular Volume 81.3 80.0-100.0 fL Mean Corpuscular Hemoglobin 27.6 L 28.0-32.0 pg Mean Corpuscular Hemoglobin Concent 34.0 32.0-36.0 g/dL Red Cell Distribution Width 13.5 11.8-14.3 % Platelet Count 196 140-450 10^3/uL Mean Platelet Volume 8.9 6.9-10.8 fL Neutrophils (%) (Auto) 70.0 37.0-80.0 % Lymphocytes (%) (Auto) 18.5 10.0-50.0 % Monocytes (%) (Auto) 5.8 0.0-12.0 % Eosinophils (%) (Auto) 4.9 0.0-7.0 % Basophils (%) (Auto) 0.8 0.0-2.0 % Neutrophils # (Auto) 4.8 1.6-8.6 10 ^3/uL Lymphocytes # (Auto) 1.3 0.4-5.4 10 ^3/uL Monocytes # (Auto) 0.4 0-1.3 10 ^3/uL Eosinophils # (Auto) 0.3 0-0.8 10 ^3/uL Basophils # (Auto) 0.1 0-0.2 10 ^3/uL Nucleated Red Blood Cells 0.1 % Sodium Level 142 136-145 mmol/L Potassium Level 4.2 3.5-5.1 mmol/L Chloride Level 107 98-107 mmol/L Carbon Dioxide Level 25 20-31 mmol/L Anion Gap 10 5-15 Blood Urea Nitrogen 16 9-23 mg/dL Creatinine 0.99 0.550-1.02 mg/dL Glomerular Filtration Rate Calc 64 >90 mL/min BUN/Creatinine Ratio 16.2 10.0-20.0 Serum Glucose 234 H 74-106 mg/dL Hemoglobin A1c 8.5 H <5.7 % A1C Calcium Level 9.4 8.7-10.4 mg/dL Triglycerides Level 173 H < 150 mg/dL Cholesterol Level 174 < 200 mg/dL LDL Cholesterol 92 < 100 mg/dL HDL Cholesterol 51 40-59 mg/dL Thyroid Stimulating Hormone (TSH) 3.69 0.55-4.78 uIU/mL Assessment Chest pain. Uncontrolled diabetes. Uncontrolled hypertension. Hyperlipidemia. Plan/Recommendation I agree with your ongoing assessment and care of plan. Telemetry reviewed. Echocardiogram. Morphine and [place] fot pain management. Amlodipine. Aspirin, Lipitor, Plavix. Nitro SL. Additional plan as per the hospital course. A total of 45 minutes was spent reviewing the patient record, examining the patient, making a diagnostic and therapeutic plan, discussing this plan with medical personnel, following up on diagnostic studies and following the patient for clinical stability excluding any and all procedures. At least 50% of this time was spent in direct, [id number] contact. Plan discussed with: Patient JEFFREY FARAH MD Feb 06, 2025 23:13
[2025-02-06] MEDS: HYDROcodone-ACET 5/325MG TAB PO PRN (23:29)
[2025-02-06] MEDS ORDERED: ATOR40TA52 PO (23:40)
[2025-02-06] MEDS ORDERED: AMLO1TAB23 PO (23:40)
[2025-02-07] VITALS (10 sets, daily range): BP systolic 135–177; BP diastolic 64–99; PULSE 61–77; RESP 15–18; TEMP 97.3–98.4; O2SAT 95–100
[2025-02-07 05:26] LABS: Hematocrit 36.3 % (36.0-46.0); Hemoglobin 12.5 g/dL (12.2-16.2); Mean Corpuscular Hemoglobin 27.8 pg (28.0-32.0); Mean Corpuscular Volume 81.2 fL (80.0-100.0); Nucleated Red Blood Cells % 0.1 %
[2025-02-07 05:51] LABS: Alanine Aminotransferase 26 U/L (7-40); Calcium 9.6 mg/dL (8.7-10.4)
[2025-02-07 05:52] LABS: Albumin 4.1 g/dL (3.2-4.8); Anion Gap 11 (5-15); BUN/Creatinine Ratio 18.7 (10.0-20.0); Bilirubin, Total 0.4 mg/dL (0.2-1.0); Blood Urea Nitrogen 20 mg/dL (9-23); Carbon Dioxide 24 mmol/L (20-31); Sodium 143 mmol/L (136-145); Total Protein 6.6 g/dL (5.7-8.2)
[2025-02-07 05:58] LABS: Alkaline Phosphatase 129 U/L (46-116); Chloride 108 mmol/L (98-107); Glucose 177 mg/dL (74-106); Potassium 3.5 mmol/L (3.5-5.1)
[2025-02-07] MEDS: GLIMEPIRIDE 2 MG TAB PO SCH (07:50)
[2025-02-07 08:55] LABS: Amphetamine Screen, Urine Neg (NEGATIVE); Barbiturate Scree,Urine Neg (NEGATIVE); Benzodiazephine Screen, Urine Neg (NEGATIVE); Cocaine Screen, Urine Neg (NEGATIVE); Opiate Scree,Urine Neg (NEGATIVE); Phencyclidine Screen, Urine Neg (NEGATIVE)
[2025-02-07 08:56] LABS: Cannabinoid Screen, Urine Neg (NEGATIVE)
[2025-02-07] MEDS: CLOPIDOGREL BISULFATE 75 MG TAB PO SCH (09:02)
[2025-02-07] MEDS: ASPirin-EC 81 mg tab PO SCH (09:03)
[2025-02-07] MEDS: EMPAGLIFLOZIN 10 MG TAB PO SCH (09:03)
--- NOTE | 2025-02-07 16:04 | DVHPNRES ---
Progress Note Date Seen: Feb 07, 2025 Resident Creating Document: JEAN PIERRE CARRIZALES RESIDENT Has the PT tested + for MRSA If YES, has PT been informed?: No Medical Necessity Reason Pt with a Central, PICC or Fol: No Subjective Review of Systems Flores Arias is a 64-year-old female with past medical history of hypertension, hyperlipemia, diabetes, and CVA (2022), who came to the hospital due to chest pain. Patient states she has been experiencing intermittent chest pain for about 2 days. She states the pain is across her right and left chest, is a pressure type of pain, worsens when she lays flat, and has associated shortness of breath when the pain occurs. Patient denies dyaforesis, any type of chest trauma, heavy weight lifting, fever, chills, nausea, vomit, abdominal pain. Patient reports she is compliant with home medications. ED evaluation, Troponins are 3, BPN is 18. Today, the patient was assessed at the bedside, patient report improvement of the chest pain 5/10 with the pain medications. Vital signs were reviewed BP is 135/93 (107) Pulse 68', rest within normal limits, Labs were reviewed BNP 18, UDS negative, UA negative. Cardiology is on board, they request a ECHO, we will follow up with the results. Constitutional: No: Fever, Chills, Sweats, Weakness, Malaise, Other Eyes: No: Pain, Vision change, Conjunctivae inflammation, Eyelid inflammation, Other, Redness ENT: No: Ear pain, Ear discharge, Nose pain, Nose discharge, Nose congestion, Mouth pain, Mouth swelling, Throat pain, Throat swelling, Other Respiratory: No: Cough, Dry, Shortness of breath, SOB with excertion, Wheezing, Hemoptysis, Pleuritic Pain, Sputum, Wheezing, Other Cardiovascular: Chest Pain on both sides of the chest cage. Patient denies Palpitations, Orthopnea, Paroxysmal Noc. Dyspnea, Edema, Lt Headedness, Other Gastrointestinal: No: Nausea, Vomiting, Abdominal Pain, Diarrhea, Constipation, Melena, Hematochezia, Other Genitourinary: No Dysuria, No Frequency, No Incontinence, No Hematuria, No Retention, No Other Musculoskeletal: No: other, neck pain, shoulder pain, arm pain, back pain, hand pain, leg pain, foot pain Neurological: No: Weakness, Numbness, Incoordination, Change in speech, Confusion, Seizures, Other Allergies: Sulfa Antibiotics (Verified Allergy, Unknown, 05/15/23) Objective vital signs Vital Sign Date Time Temp Pulse Resp B/P (MAP) Pulse Ox O2 Delivery O2 Flow Rate FiO2 02/07/25 13:00 97.6 61 16 145/83 (103) 98 97.6 02/07/25 08:12 Room Air* 0 21 Total Intake and Output 02/06/25 02/06/25 02/07/25 15:00 23:00 07:00 Intake Total 700 ml Balance 700 ml medications Current Medications Medications Dose Ordered Sig/Reynaldo Route Start Time Stop Time Status Last Admin Dose Admin Acetaminophen/ Hydrocodone Bitart 1 tab Q4HP PRN PO 02/06/25 17:00 02/07/25 07:51 1 TAB Ondansetron HCl 4 mg Q4HP PRN IV 02/06/25 17:00 Docusate Sodium 100 mg BIDPRN PRN PO 02/06/25 17:00 Acetaminophen 650 mg Q6HP PRN PO 02/06/25 17:00 Nitroglycerin 0.4 mg Q5MINP PRN SL 02/06/25 17:00 Morphine Sulfate 2 mg Q30M PRN IV 02/06/25 17:00 Diagnostic Test (Pha) 1 strip ACHS 02/06/25 17:00 02/07/25 12:10 1 STRIP Insulin Human Regular HS SC 02/06/25 22:00 02/06/25 22:41 3 UNITS Insulin Human Regular AC SC 02/06/25 17:00 02/07/25 12:27 3 UNITS Dextrose 50 ml UD PRN IV 02/06/25 17:00 Aspirin 81 mg DAILY PO 02/07/25 10:00 02/07/25 09:03 81 MG Atorvastatin Calcium 20 mg HS PO 02/06/25 22:00 02/06/25 22:41 20 MG Clopidogrel Bisulfate 75 mg DAILY PO 02/07/25 10:00 02/07/25 09:02 75 MG Ergocalciferol 50,000 unit Q7D PO 02/06/25 17:00 02/06/25 17:29 50,000 UNIT Amlodipine Besylate 5 mg DAILY PO 02/07/25 10:00 02/07/25 09:03 5 MG Empaglifozin 10 mg DAILY PO 02/07/25 10:00 02/07/25 09:03 10 MG Glimepiride 4 mg DAILY@BREAKFAST PO 02/07/25 08:00 02/07/25 07:50 4 MG Baclofen 10 mg Q8HP PRN PO 02/07/25 15:30 UNV Examination General Appearance: Alert, Oriented X3, Cooperative, mild distress HEENT: Atraumatic, PERRLA Respiratory: Clear to auscultation, Normal air movement Cardiovascular: Regular rate, Normal S1, Normal S2, No murmurs, tenderness over the lateral sides of the chest cage, bilateral midclavicular line. Abdominal: Normal bowel sounds, Soft, No tenderness, No hepatospenomegaly Extremities: No clubbing, No cyanosis, bilateral no pitting edema. Skin: No rashes, No breakdown Neuro: Normal gait, Normal speech, Strength at 5/5 X4 ext, Normal tone Psych/Mental Status: Mental status NL laboratory and microbiology Laboratory Tests 02/07/25 04:16 Test 02/07/25 04:16 Range/Units Serum Glucose 177 H 74-106 mg/dL Problem List/Assessment/Plan Problem List/Assessment/Plan #Acute Chest pain, rule out ACS Troponins 3 Cardiolgy consult ECHO pending result Aspirin 81 Atorvastatin 40mg Morphine 2mg #Uncontrolled diabetes Insulin sliding scale #Possible GERD Omeprazol 20mg #Uncontrolled hypertension Clonidine #Hyperlipidemia Atorvastatin 40mg DVT/PPI prophylaxis Goals of care discussed, more than 35 min spend with the patient. Case discussed with Dr. Brown Code status: Full code PCP: Dr. Gill, at Dr. [facility]ibeiro[facility] clinic Medical plan discussed with patient and RN. Patient agrees with the plan. Plan discussed with: Patient My Orders My Orders Orders - JEAN PIERRE CARRIZALES Procedure Category Date Status Time Complete Blood Count LAB 02/08/25 Verified 04:00 Basic Metabolic Panel LAB 02/08/25 Verified 04:00 Baclofen Tablet PHA 02/07/25 Logged (Liorisal Tablet) 15:30 Date of Service: Feb 07, 2025 Billing Provider: MAREN ROSE MD Common Visit Codes: [id number] INP/OBS CARE(HIGH) JEAN PIERRE CARRIZALES RESIDENT Feb 07, 2025 16:04 MAREN ROSE MD Feb 14, 2025 01:25
[2025-02-07] MEDS: BACLOFEN 10 MG TAB PO PRN (16:44)
--- NOTE | 2025-02-07 21:16 | DVHSR ---
APPROVED REPORT EXAM: Two-dimensional and M-mode echocardiogram with Doppler and color Doppler. Blood Pressure: 135/93 mmHg INDICATION possible acs, uncontrolled hypertension RISK FACTORS Height: 4'9, Weight: 153 DIMENSIONS LVDd3.6 (3.8-5.7cm)LA (2D)4.1 (1.9-4.0cm)Aortic Root2.8 (2.0-3.7cm) LVDs2.5 (2.5-4.0cm)LA (MM) (1.9-4.0cm)Aortic Cusp Exc1.6 (1.5-2.0cm) EF (%) 55.0 (55-70%)Rt. Atrium3.5 (1.9-4.0cm)Asc. Aorta2.8 cm IVSd1.0 (0.7-1.1cm)RV (D)3.7 (1.8-2.4cm) PWd0.8 (0.7-1.1cm) Mitral Valve MitralMitral Stenosis E wave0.74m/sMV Mean GR.mmHg A wave0.87m/sMV Peak GR.61mmHg E/A ratio0.92D MVAcm2 DECEL [id number] 1/2 Timems Aortic Valve Aortic ValveAortic Stenosis V10.95m/Khoa Mean GR.3mmHg V21.19m/Khoa Peak GR.6mmHg LVOT Diameter2.1 (1.8-2.4cm)Doppler AVA2.76cm2 AI P 1/2 [id number] Pulmonic Valve V20.84m/s Tricuspid Valve TR Velocity2.09m/s [id number] Conclusion LV EF IS 65% AND IS NORMAL AORTIC SCLEROSIS MODERATE DEGREE AORTIC REGURGITATION NORMAL MV,TV AND TV NO EFFUSION NORMAL RV FUNCTION
--- NOTE | 2025-02-07 23:58 | DVHPN2 ---
Progress Note - Dictate Date Seen: Feb 07, 2025 Medical Necessity Reason Pt with a Central, PICC or Fol: No Subjective Patient was seen and evaluated in follow up. Patient is complaining of chest pain. Patient is refusing IV access. 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 Telemetry reviewed. vital signs Vital Sign Date Time Temp Pulse Resp B/P (MAP) Pulse Ox O2 Delivery O2 Flow Rate FiO2 02/07/25 13:00 97.6 61 16 145/83 (103) 98 97.6 02/07/25 08:12 Room Air* 0 21 Total Intake and Output 02/06/25 02/06/25 02/07/25 15:00 23:00 07:00 Intake Total 700 ml Balance 700 ml medications Current Medications Medications Dose Ordered Sig/Reynaldo Route Start Time Stop Time Status Last Admin Dose Admin Acetaminophen/ Hydrocodone Bitart 1 tab Q4HP PRN PO 02/06/25 17:00 02/07/25 07:51 1 TAB Ondansetron HCl 4 mg Q4HP PRN IV 02/06/25 17:00 Docusate Sodium 100 mg BIDPRN PRN PO 02/06/25 17:00 Acetaminophen 650 mg Q6HP PRN PO 02/06/25 17:00 Nitroglycerin 0.4 mg Q5MINP PRN SL 02/06/25 17:00 Morphine Sulfate 2 mg Q30M PRN IV 02/06/25 17:00 Diagnostic Test (Pha) 1 strip ACHS 02/06/25 17:00 02/07/25 12:10 1 STRIP Insulin Human Regular HS SC 02/06/25 22:00 02/06/25 22:41 3 UNITS Insulin Human Regular AC SC 02/06/25 17:00 02/07/25 12:27 3 UNITS Dextrose 50 ml UD PRN IV 02/06/25 17:00 Aspirin 81 mg DAILY PO 02/07/25 10:00 02/07/25 09:03 81 MG Atorvastatin Calcium 20 mg HS PO 02/06/25 22:00 02/06/25 22:41 20 MG Clopidogrel Bisulfate 75 mg DAILY PO 02/07/25 10:00 02/07/25 09:02 75 MG Ergocalciferol 50,000 unit Q7D PO 02/06/25 17:00 02/06/25 17:29 50,000 UNIT Amlodipine Besylate 5 mg DAILY PO 02/07/25 10:00 02/07/25 09:03 5 MG Empaglifozin 10 mg DAILY PO 02/07/25 10:00 02/07/25 09:03 10 MG Glimepiride 4 mg DAILY@BREAKFAST PO 02/07/25 08:00 02/07/25 07:50 4 MG objective GENERAL: Alert and oriented x 3. No acute distress. EYES: PERRL, EOMI. Anicteric. HENT: Moist mucous membranes. LUNGS: Clear to auscultation bilaterally. CARDIOVASCULAR: Regular rate and rhythm. ABDOMEN: Soft, non-tender and non-distended. EXTREMITIES: No edema. NEUROLOGIC: No focal neurological deficits. SKIN: Warm, dry. laboratory and microbiology Laboratory Tests 02/07/25 04:16 Test 02/07/25 04:16 Range/Units Serum Glucose 177 H 74-106 mg/dL Problem List Chest pain. Uncontrolled diabetes. Uncontrolled hypertension. Hyperlipidemia. Assessment/Plan Continued all current supportive medical care. Echocardiogram. Morphine and [place] for pain management. Amlodipine. Aspirin,Plavix. Nitro SL. Additional plan as per the hospital course. Plan discussed with: Patient JEFFREY FARAH MD Feb 07, 2025 14:17
[2025-02-08 00:32] VITALS: BP_SYST 118; BP_SYST 148; BP_DIAS 62; BP_DIAS 82; PULSE 67; PULSE 80; RESP 17; TEMP 97.4; TEMP 97.5; O2SAT 97
[2025-02-08 04:20] VITALS: BP 144/88; PULSE 65; RESP 16; TEMP 97.3; O2SAT 98
[2025-02-08 06:24] LABS: Potassium 3.9 mmol/L (3.5-5.1); Sodium 143 mmol/L (136-145)
[2025-02-08 06:25] LABS: Anion Gap 10 (5-15); Calcium 9.2 mg/dL (8.7-10.4); Carbon Dioxide 25 mmol/L (20-31)
[2025-02-08 06:30] LABS: BUN/Creatinine Ratio 22.7 (10.0-20.0); Blood Urea Nitrogen 22 mg/dL (9-23); Glucose 92 mg/dL (74-106)
[2025-02-08 06:35] LABS: Chloride 108 mmol/L (98-107); Hematocrit 36.2 % (36.0-46.0); Hemoglobin 12.4 g/dL (12.2-16.2); Mean Corpuscular Hemoglobin 27.7 pg (28.0-32.0); Mean Corpuscular Volume 81.1 fL (80.0-100.0); Nucleated Red Blood Cells % 0.0 %
[2025-02-08 08:00] VITALS: PULSE 68
[2025-02-08 08:33] VITALS: BP 160/89; PULSE 75; RESP 19; TEMP 98; O2SAT 98
[2025-02-08 10:15] VITALS: BP 144/89; PULSE 74
[2025-02-08] MEDS ORDERED: BACL5TAB2 PO (10:57)
[2025-02-08] MEDS ORDERED: IBUP1TAB5 PO (10:57)
[2025-02-08 12:40] VITALS: BP 151/84; PULSE 78; RESP 18; TEMP 98.4; O2SAT 97
--- NOTE | 2025-02-08 13:56 | DVHDSRES ---
Discharge Summary Date of Admission Resident Creating Document: JEAN PIERRE CARRIZALES RESIDENT Feb 06, 2025 at 16:53 Date of Discharge: Feb 08, 2025 Admitting Diagnosis Chest pain Wounds: No wounds present on physical exam. Labs/Diagnostic Data: Laboratory Results Test 02/08/25 11:13 02/08/25 04:49 02/07/25 08:09 02/07/25 04:16 POC Glucose 208 mg/dl (70-106) White Blood Count 6.8 10^3/uL (4.4-10.8) Red Blood Count 4.46 10^6/uL (4.0-5.20) Hemoglobin 12.4 g/dL (12.2-16.2) Hematocrit 36.2 % (36.0-46.0) Mean Corpuscular Volume 81.1 fL (80.0-100.0) Mean Corpuscular Hemoglobin 27.7 pg (28.0-32.0) Mean Corpuscular Hemoglobin Concent 34.2 g/dL (32.0-36.0) Red Cell Distribution Width 13.7 % (11.8-14.3) Platelet Count 185 10^3/uL (140-450) Mean Platelet Volume 8.8 fL (6.9-10.8) Neutrophils (%) (Auto) 64.9 % (37.0-80.0) Lymphocytes (%) (Auto) 23.2 % (10.0-50.0) Monocytes (%) (Auto) 6.0 % (0.0-12.0) Eosinophils (%) (Auto) 4.9 % (0.0-7.0) Basophils (%) (Auto) 1.0 % (0.0-2.0) Neutrophils # (Auto) 4.4 10 ^3/uL (1.6-8.6) Lymphocytes # (Auto) 1.6 10 ^3/uL (0.4-5.4) Monocytes # (Auto) 0.4 10 ^3/uL (0-1.3) Eosinophils # (Auto) 0.3 10 ^3/uL (0-0.8) Basophils # (Auto) 0.1 10 ^3/uL (0-0.2) Nucleated Red Blood Cells 0.0 % Sodium Level 143 mmol/L (136-145) Potassium Level 3.9 mmol/L (3.5-5.1) Chloride Level 108 mmol/L (98-107) Carbon Dioxide Level 25 mmol/L (20-31) Anion Gap 10 (5-15) Blood Urea Nitrogen 22 mg/dL (9-23) Creatinine 0.97 mg/dL (0.550-1.02) Glomerular Filtration Rate Calc 66 mL/min (>90) BUN/Creatinine Ratio 22.7 (10.0-20.0) Serum Glucose 92 mg/dL (74-106) Calcium Level 9.2 mg/dL (8.7-10.4) Urine Opiates Screen Neg (NEGATIVE) Urine Fentanyl Screen Neg (NEGATIVE) Urine Barbiturates Screen Neg (NEGATIVE) Urine Phencyclidine Screen Neg (NEGATIVE) Urine Amphetamines Screen Neg (NEGATIVE) Urine Benzodiazepines Screen Neg (NEGATIVE) Urine Cocaine Screen Neg (NEGATIVE) Urine Cannabinoids Screen Neg (NEGATIVE) Total Bilirubin 0.4 mg/dL (0.2-1.0) Aspartate Amino Transferase (AST) 18 U/L (13-40) Alanine Aminotransferase (ALT) 26 U/L (7-40) Alkaline Phosphatase 129 U/L (46-116) B-Type Natriuretic Peptide 18.32 pg/mL (0-100) Total Protein 6.6 g/dL (5.7-8.2) Albumin 4.1 g/dL (3.2-4.8) Test 02/06/25 16:31 02/06/25 14:21 02/06/25 13:24 Urine Color Light-yellow (Yellow) Urine Clarity Clear (Clear) Urine pH 5.5 (5.0-9.0) Urine Specific [place] 1.031 (1.001-1.035) Urine Protein 1+ (Negative) Urine Ketones Negative (Negative) Urine Blood Trace /uL (Negative) Urine Nitrite Negative (Negative) Urine Bilirubin Negative (Negative) Urine Urobilinogen Normal mg/dL (Negative) Urine Leukocyte Esterase Negative /uL (Negative) Urine RBC 14 /hpf (0 - 4) Urine Microscopic WBC 2 /HPF (0-5) Urine Squamous Epithelial Cells Few /hpf (<5) Urine Bacteria None seen /hpf (None Seen) Urine Yeast (Budding) Few /hpf (None Seen) Urine Glucose 4+ mg/dL (Normal) Troponin I High Sensitivity 3 ng/L (</=34) Hemoglobin A1c 8.5 % A1C (<5.7) Triglycerides Level 173 mg/dL (< 150) Cholesterol Level 174 mg/dL (< 200) LDL Cholesterol 92 mg/dL (< 100) HDL Cholesterol 51 mg/dL (40-59) Thyroid Stimulating Hormone (TSH) 3.69 uIU/mL (0.55-4.78) Other Laboratory Tests 02/08/25 04:49 Brief Hx & Hospital Course: Flores Arias is a 64-year-old female with past medical history of hypertension, hyperlipemia, diabetes, and CVA (2022), who came to the hospital due to chest pain. Patient states she has been experiencing intermittent chest pain for about 2 days. She states the pain is across her right and left chest, is a pressure type of pain, worsens when she lays flat, and has associated shortness of breath when the pain occurs. Patient denies diaphoresis, any type of chest trauma, heavy weight lifting, fever, chills, nausea, vomit, abdominal pain. Patient reported being compliant with home medications. ED evaluation and initial workout showed Troponin within normal limit. BPN was 18, UDS was negative, UA was negative. ASC was ruled out. Today, the patient was assessed at the bedside, patient reported improvement of the chest pain 2/10 that improved after baclofen 10 mg po, Vital signs were reviewed BP is 144/88mmHg. Cardiology consult was done, ECHO was requested and results showed 65% EF with moderate aortic stenosis and aortic sclerosis, the patent will follow up this results as an out patient. Due to a significant clinical improvement the patient will be discharged today. Discharge plan: Discharge home Cardiac diet Blacofen 10mg po qd Ibuprofen 600mg po bid Amlodipine 10mg po qd F/U with cardiology in 2 weeks F/U with PCP in one week ROS: Constitutional: No: Fever, Chills, Sweats, Weakness, Malaise, Other Eyes: No: Pain, Vision change, Conjunctivae inflammation, Eyelid inflammation, Other, Redness ENT: No: Ear pain, Ear discharge, Nose pain, Nose discharge, Nose congestion, Mouth pain, Mouth swelling, Throat pain, Throat swelling, Other Respiratory: No: Cough, Dry, Shortness of breath, SOB with excertion, Wheezing, Hemoptysis, Pleuritic Pain, Sputum, Wheezing, Other Cardiovascular: Chest Pain on both sides of the chest cage. Patient denies Palpitations, Orthopnea, Paroxysmal Noc. Dyspnea, Edema, Lt Headedness, Other Gastrointestinal: No: Nausea, Vomiting, Abdominal Pain, Diarrhea, Constipation, Melena, Hematochezia, Other Genitourinary: No Dysuria, No Frequency, No Incontinence, No Hematuria, No Retention, No Other Musculoskeletal: No: other, neck pain, shoulder pain, arm pain, back pain, hand pain, leg pain, foot pain Neurological: No: Weakness, Numbness, Incoordination, Change in speech, Confusion, Seizures, Other Allergies: Sulfa Antibiotics (Verified Allergy, Unknown, 05/15/23) Examination General Appearance: Alert, Oriented X3, Cooperative, mild distress HEENT: Atraumatic, PERRLA Respiratory: Clear to auscultation, Normal air movement Cardiovascular: Regular rate, Normal S1, Normal S2, No murmurs, tenderness over the lateral sides of the chest cage, bilateral midclavicular line. Abdominal: Normal bowel sounds, Soft, No tenderness, No hepatospenomegaly Extremities: No clubbing, No cyanosis, no pitting edema. Skin: No rashes, No breakdown Neuro: Normal gait, Normal speech, Strength at 5/5 X4 ext, Normal tone Psych/Mental Status: Mental status NL laboratory and microbiology Assessments during admission #Acute Chest pain, likely due to musculoskeletal etiology. #ACS ruled out. #Uncontrolled DM type 2, with hyperglycemia #GERD #Uncontrolled hypertension #Hyperlipidemia Goals of care discussed, more than 35 min spend with the patient. Case discussed with Dr. Brown Code status: Full code PCP: Dr. Gill, at Dr. [facility] clinic Medical plan discussed with patient and RN. Patient agrees with the discharge plan. Consults/Reason for consult Cardiology: Chest pain, uncontrolled hypertension Operations or Procedures EXAM: XY CHEST TWO VIEWS ROUTINE CLINICAL HISTORY: sob COMPARISON: None TECHNIQUE: Frontal and lateral view of the chest was obtained FINDINGS: Lines and Tubes: None Lungs: No focal consolidation. Pleura: No effusion. No pneumothorax. Cardiomediastinal contours: Unremarkable Bones: No acute osseous abnormality. IMPRESSION: No acute cardiopulmonary disease. : Two-dimensional and M-mode echocardiogram with Doppler and color Doppler. Blood Pressure: 135/93 mmHg INDICATION possible acs, uncontrolled hypertension RISK FACTORS Height: 4'9, Weight: 153 DIMENSIONS LVDd 3.6 (3.8-5.7cm) LA (2D) 4.1 (1.9-4.0cm) Aortic Root 2.8 (2.0- 3.7cm) LVDs 2.5 (2.5-4.0cm) LA (MM) (1.9-4.0cm) Aortic Cusp Exc 1.6 (1.5- 2.0cm) EF (%) 55.0 (55-70%) Rt. Atrium 3.5 (1.9-4.0cm) Asc. Aorta 2.8 cm IVSd 1.0 (0.7-1.1cm) RV (D) 3.7 (1.8-2.4cm) PWd 0.8 (0.7-1.1cm) Mitral Valve Mitral Mitral Stenosis E wave 0.74m/s MV Mean GR. mmHg A wave 0.87m/s MV Peak GR. 61mmHg E/A ratio 0.9 2D MVA cm2 DECEL Time 202ms PRESS 1/2 Time ms Aortic Valve Aortic Valve Aortic Stenosis V1 0.95m/s AO Mean GR. 3mmHg V2 1.19m/s AO Peak GR. 6mmHg LVOT Diameter 2.1 (1.8-2.4cm) Doppler RAJAN 2.76cm2 AI P 1/2 Time 632.51ms Pulmonic Valve V2 0.84m/s Tricuspid Valve TR Velocity 2.09m/s RVSP 20mmHg Conclusion LV EF IS 65% AND IS NORMAL AORTIC SCLEROSIS MODERATE DEGREE AORTIC REGURGITATION NORMAL MV,TV AND TV NO EFFUSION NORMAL RV FUNCTION Condition at Discharge: Stable Final Diagnosis/Problems List Assessments during admission #Acute Chest pain, ACS ruled out, likely due to musculoskeletal etiology #Uncontrolled DM type 2, with hyperglycemia #GERD #Uncontrolled hypertension #Hyperlipidemia Discharge Disposition: Home SNF Discharge Will this Physician continue t: No Discharge Instruct/Medications Diet: Cardiac 2g Na,low cholest Diet comment: Low carbohydrate diet. Low saturated fat diet. Activity: No Restrictions, As Tolerated Follow Up/Referral: F/U with PCP in one week Medications: Blacofen 10 mg po at night Ibuprofen 600mg po qd Amlodipine 10mg po qd Scheduled Amlodipine Besylate (Amlodipine Besylate), 1 TAB PO DAILY, (Reported) Aspirin (Aspir-Low), 81 MG PO DAILY, (Reported) Atorvastatin Calcium (Atorvastatin Calcium), 1 TAB PO DAILY, (Reported) Cholecalciferol (Vitamin D3), 50,000 UNIT OR once a week, (Reported) Clopidogrel Bisulfate (Clopidogrel), 75 MG PO DAILY, (Reported) Empagliflozin (Jardiance), 1 TAB PO DAILY, (Reported) Gabapentin (Gabapentin), 300 MG PO DAILY, (Reported) Glimepiride (Glimepiride), 1 TAB PO QAM, (Reported) Omeprazole (Gnp Omeprazole), 40 MG PO before breakfast, (Reported) Scheduled PRN Baclofen (Baclofen), 5 MG PO BID PRN Ibuprofen Micronized (Ibuprofen), 600 MG PO BID PRN Discharge Statement: "Patient was advised to return to the ER or call 911 if any headaches, dizziness, shortness of breath, chest pain, abdominal pain, bleeding, fevers, or worsening of medical condition. Patient was counseled about treatment plan, medications, possible side effects, patientverbalized understanding. All questions were answered to the best of my ability. This discharge took greater then 30 minutes in planning, reviewing documentation, counseling the patient, and discussing with other team members." ASSESSMENT ASSESSMENT Assessment Chest pain, ACS ruled out, possible musculoskeletal etiology. GERD Diabetes mellitus, with hyperglycemia Hyperlipidemia Hypertension Date of Service: Feb 08, 2025 Billing Provider: MAREN ROSE MD Common Visit Codes: 23679-DHF/OBS DISCH DAY >30min JEAN PIERRE CARRIZALES RESIDENT Feb 08, 2025 13:56 MAREN ROSE MD Feb 14, 2025 21:29
--- NOTE | 2025-02-09 00:08 | DVHPN2 ---
Progress Note - Dictate Date Seen: Feb 08, 2025 Has the PT tested + for MRSA If YES, has PT been informed?: No Medical Necessity Reason Pt with a Central, PICC or Fol: No Subjective Patient was seen and evaluated in follow up. Echocardiogram showed an EF of 65%. Patient is cardiac stable for discharge. Telemetry reviewed. vital signs Vital Sign Date Time Temp Pulse Resp B/P (MAP) Pulse Ox O2 Delivery O2 Flow Rate FiO2 02/08/25 12:40 98.4 78 18 151/84 (106) 97 98.4 02/08/25 08:00 Room Air* 0 21 Total Intake and Output 02/07/25 02/07/25 02/08/25 15:00 23:00 07:00 Intake Total 1200 ml 600 ml Balance 1200 ml 600 ml medications Current Medications Medications Dose Ordered Sig/Reynaldo Route Start Time Stop Time Status Last Admin Dose Admin Acetaminophen/ Hydrocodone Bitart 1 tab Q4HP PRN PO 02/06/25 17:00 02/07/25 22:32 1 TAB Ondansetron HCl 4 mg Q4HP PRN IV 02/06/25 17:00 Docusate Sodium 100 mg BIDPRN PRN PO 02/06/25 17:00 Acetaminophen 650 mg Q6HP PRN PO 02/06/25 17:00 Nitroglycerin 0.4 mg Q5MINP PRN SL 02/06/25 17:00 Morphine Sulfate 2 mg Q30M PRN IV 02/06/25 17:00 Diagnostic Test (Pha) 1 strip ACHS 02/06/25 17:00 02/08/25 11:51 1 STRIP Insulin Human Regular HS SC 02/06/25 22:00 02/07/25 21:01 4 UNITS Insulin Human Regular AC SC 02/06/25 17:00 02/08/25 11:51 6 UNITS Dextrose 50 ml UD PRN IV 02/06/25 17:00 Aspirin 81 mg DAILY PO 02/07/25 10:00 02/08/25 08:49 81 MG Atorvastatin Calcium 20 mg HS PO 02/06/25 22:00 02/07/25 21:02 20 MG Clopidogrel Bisulfate 75 mg DAILY PO 02/07/25 10:00 02/08/25 08:48 75 MG Ergocalciferol 50,000 unit Q7D PO 02/06/25 17:00 02/06/25 17:29 50,000 UNIT Amlodipine Besylate 5 mg DAILY PO 02/07/25 10:00 02/08/25 08:49 5 MG Empaglifozin 10 mg DAILY PO 02/07/25 10:00 02/08/25 08:48 10 MG Baclofen 10 mg Q8HP PRN PO 02/07/25 15:30 02/07/25 16:44 10 MG objective GENERAL: Alert and oriented x 3. No acute distress. EYES: PERRL, EOMI. Anicteric. HENT: Moist mucous membranes. LUNGS: Clear to auscultation bilaterally. CARDIOVASCULAR: Regular rate and rhythm. ABDOMEN: Soft, non-tender and non-distended. EXTREMITIES: No edema. NEUROLOGIC: No focal neurological deficits. SKIN: Warm, dry. laboratory and microbiology Laboratory Tests 02/08/25 04:49 Test 02/08/25 04:49 Range/Units Serum Glucose 92 74-106 mg/dL Problem List Chest pain. Uncontrolled diabetes. Uncontrolled hypertension. Hyperlipidemia. Assessment/Plan Continued all current supportive medical care. Morphine and Tylenol for pain management. Amlodipine. Aspirin,Plavix. Nitro SL. Additional plan as per the hospital course. Plan discussed with: Patient JEFFREY FARAH MD Feb 08, 2025 13:04
--- NOTE | 2025-02-12 13:13 | ECG ---
Test Date: 2025-02-06 Test Time: 13:22:21 Pat Name: LIZBET MOE Department: er Room: 0212T B Gender: F Supervisor Quilting: wilbert : 1960 Requested By: JUAN IBANEZ Order Number: [id number] Reading MD: Tommie Mason Measurements Intervals [place] Rate: 83 P: 49 AL: 175 QRS: 43 QRSD: 97 T: 50 QT: 381 QTc: 448 Interpretive Statements Sinus rhythm Low voltage, precordial leads Anteroseptal infarct, old Electronically Signed On 02-14-2025 13:58:52 PDT by Tommie Mason Please click the below link to view image of tracing.
== END 2025-02-08 13:46 | disposition home or self-care (01) | DRG 203 ==
LOC: ER 13:14 → OVERFLOW 16:53 → TELE-CENTR 22:58
PROVIDERS: ADMIT Student in an Organized Health Care Education/Training Program; ATTEND Emergency Medicine
DX: R07.89 Other chest pain (principal); E11.65 Type 2 diabetes mellitus with hyperglycemia; K21.9 Gastro-esophageal reflux disease without esophagitis; I10 Essential (primary) hypertension; E78.5 Hyperlipidemia, unspecified; Z53.20 Procedure and treatment not carried out because of patient's decision for unspecified reasons; Z86.73 Personal history of transient ischemic attack (TIA), and cerebral infarction without residual deficits; Z82.49 Family history of ischemic heart disease and other diseases of the circulatory system
CPT/HCPCS: 36415; 71046; 80048; 80053; 80061; 80307; 81001; 82962; 83036; 83880; 84443; 84484; 85025; 93005; 93306; 96372; 99291; G0378; J1815